=== PATIENT | male | born 1985 | race Caucasian/White ===

== ENCOUNTER 2019-09-27 15:07 | Emergency (ER) | payer SELFPAY ==
[~2019-09-27] VITALS: Ht 160 cm; Wt 73.0 kg
--- NOTE | 2019-09-27 15:30 | NUR ---
patient came in to the er c/o chest pain and anxious. On room air, breathing evenly and unlabored. connected to the monitor and pulse ox. kept comfortable, will continue to monitor accordingly.
[2019-09-27] MEDS ORDERED: LORAZEPAM INJ 2 MG/ML VIAL ONE (15:59)
[2019-09-27] MEDS ORDERED: ASPIRIN 81 MG TAB.CHEW ONE (15:59)
[2019-09-27] MEDS: LORAZEPAM INJ 2 MG/ML VIAL IV ONE (16:00)
[2019-09-27] MEDS: IV NS 0.9% 1,000 ML BAG IV ONE (16:00)
[2019-09-27] MEDS: ASPIRIN 81 MG TAB.CHEW PO ONE (16:00)
[2019-09-27 16:03] LABS: BASOPHILS # (AUTO) 0.1 /CMM (0.0-0.2); BASOPHILS % (AUTO) 0.4 % (0.0-2.0); EOSINOPHILS % (AUTO) 0.1 % (0.0-6.0); HEMATOCRIT 47 % (39-51); HEMOGLOBIN 15.6 g/dL (13.5-17.5); LYMPHOCYTES # (AUTO) 1.9 /CMM (0.8-4.8); LYMPHOCYTES % (AUTO) 14.2 % (20.0-44.0); MEAN CORPUSCULAR HGB CONC 33 g/dl (31.0-36.0); MEAN CORPUSCULAR VOLUME 89 fL (80-96); MONOCYTES # (AUTO) 0.8 /CMM (0.1-1.30); MONOCYTES % (AUTO) 5.7 % (2.0-12.0); NEUTROPHILS # (AUTO) 10.7 /CMM (1.8-8.9); NEUTROPHILS % (AUTO) 79.6 % (43.0-81.0); PLATELET COUNT (AUTO) 303 /CMM (150-450); WHITE BLOOD COUNT (AUTO) 13.4 K/uL (4.3-11.0)
[2019-09-27 16:09] LABS: CALCIUM, SERUM 9.1 mg/dL (8.5-10.1); CARBON DIOXIDE 28 mmol/L (21-32); CHLORIDE 100 mmol/L (98-107); CREATININE 0.9 mg/dL (0.6-1.3); GLUCOSE 138 mg/dL (74-106); POTASSIUM 3.7 mmol/L (3.5-5.1); SODIUM SERUM 136 mmol/L (136-145); UREA NITROGEN, BLOOD 15 mg/dL (7-18)
[2019-09-27 16:40] VITALS: BP 135/72
--- NOTE | 2019-09-27 16:40 | NUR ---
Patient discharged to home in stable condition. Written and verbal after care instructions given. Patient verbalizes understanding of instruction.IV removed. Catheter intact and site benign. Pressure and 4x4 applied to site. No bleeding noted.
== END 2019-09-27 16:40 | disposition home or self-care (01) ==
LOC: ER 15:11
DX: R07.89 Other chest pain (principal); F41.1 Generalized anxiety disorder
CPT/HCPCS: 36415; 71045; 80048; 84484; 85025; 93005 ×2; 96374; 99285; J2060; J7030

== ENCOUNTER 2019-09-29 19:14 | Emergency (ER) | payer SELFPAY ==
[~2019-09-29] VITALS: Ht 160 cm; Wt 73.0 kg
[2019-09-29 19:22] VITALS: BP 156/93
[2019-09-29] MEDS ORDERED: LORAZEPAM 1 MG TABLET ONE (19:44)
--- NOTE | 2019-09-29 19:47 | NUR ---
Patient discharged to home in stable condition. Written and verbal after care instructions given. Patient verbalizes understanding of instruction.
[2019-09-29] MEDS ORDERED: LORAZEPAM 1 MG TABLET PO ONE (20:00)
== END 2019-09-29 19:47 | disposition home or self-care (01) ==
LOC: ER 19:17
DX: F41.0 Panic disorder [episodic paroxysmal anxiety] (principal)